=== PATIENT | female | born 1990 | race Two or more races ===

== ENCOUNTER 2023-02-13 07:58 | Outpatient (CLI) | payer OTHER ==
[2023-02-13] MEDS ORDERED: PRENATAL + DHA1 EAC1 PO (11:51)
[2023-02-13] MEDS ORDERED: ENDOMETRIN100 MG VAG (11:52)
[2023-02-13] MEDS ORDERED: PANTOPRAZOLE SO40 MG (13:38)
[2023-02-13] MEDS ORDERED: FOLIC ACID1 MG (13:38)
[2023-02-13] MEDS ORDERED: INDOMETHACIN25 MG PO (15:28)
== END 2023-02-13 09:29 | disposition home or self-care (01) ==
LOC: PRENATAL 07:58
PROVIDERS: ATTEND Obstetrics & Gynecology Maternal & Fetal Medicine
DX: O26.849 Uterine size-date discrepancy, unspecified trimester (principal); O26.879 Cervical shortening, unspecified trimester; O44.00 Complete placenta previa NOS or without hemorrhage, unspecified trimester; O34.40 Maternal care for other abnormalities of cervix, unspecified trimester; Z3A.19 19 weeks gestation of pregnancy

== ENCOUNTER 2023-02-13 09:19 | Day surgery (SDC) | payer OTHER ==
[~2023-02-13] VITALS: Ht 162.6 cm; Wt 69.9 kg
[2023-02-13] MEDS ORDERED: PRENATAL + DHA1 EAC1 PO (11:51)
[2023-02-13] MEDS ORDERED: ENDOMETRIN100 MG VAG (11:52)
[2023-02-13] MEDS ORDERED: FOLIC ACID1 MG (13:38)
[2023-02-13] MEDS ORDERED: PANTOPRAZOLE SO40 MG (13:38)
[2023-02-13] MEDS ORDERED: INDOMETHACIN25 MG PO (15:28)
== END 2023-02-13 18:15 | disposition home or self-care (01) ==
LOC: LDR 09:19 → CIR.AMB 09:19 → EDSTATUS 14:00 → CIR.AMB 18:15 → LDR 18:15
PROVIDERS: ATTEND Obstetrics & Gynecology Maternal & Fetal Medicine
DX: O26.872 Cervical shortening, second trimester (principal); Z3A.19 19 weeks gestation of pregnancy; O44.02 Complete placenta previa NOS or without hemorrhage, second trimester; Z91.013 Allergy to seafood; Z20.822 Contact with and (suspected) exposure to COVID-19

== ENCOUNTER 2023-02-27 10:28 | Outpatient (CLI) | payer OTHER ==
[~2023-02-27 10:28] MED LIST: ENDOMETRIN100 MG VAG; FOLIC ACID1 MG; INDOMETHACIN25 MG PO; PANTOPRAZOLE SO40 MG; PRENATAL + DHA1 EAC1 PO
== END 2023-02-27 12:45 | disposition home or self-care (01) ==
LOC: PRENATAL 10:28
PROVIDERS: ATTEND Obstetrics & Gynecology Maternal & Fetal Medicine
DX: O26.849 Uterine size-date discrepancy, unspecified trimester (principal); O44.00 Complete placenta previa NOS or without hemorrhage, unspecified trimester; O26.879 Cervical shortening, unspecified trimester; Z3A.21 21 weeks gestation of pregnancy

== ENCOUNTER 2023-04-21 08:10 | Outpatient (CLI) | payer OTHER | END 2023-04-21 09:37 | disposition home or self-care (01) | LOC: PRENATAL 08:10 | PROVIDERS: ATTEND Obstetrics & Gynecology Maternal & Fetal Medicine | DX: O26.849 Uterine size-date discrepancy, unspecified trimester (principal); O44.00 Complete placenta previa NOS or without hemorrhage, unspecified trimester; O26.879 Cervical shortening, unspecified trimester; O35.9XX0 Maternal care for (suspected) fetal abnormality and damage, unspecified, not applicable or unspecified; Z3A.29 29 weeks gestation of pregnancy ==

== ENCOUNTER 2023-05-29 11:20 | Outpatient (CLI) | payer OTHER | END 2023-05-29 14:25 | disposition home or self-care (01) | LOC: PRENATAL 11:20 | PROVIDERS: ATTEND Obstetrics & Gynecology Maternal & Fetal Medicine | DX: O26.849 Uterine size-date discrepancy, unspecified trimester (principal); O26.879 Cervical shortening, unspecified trimester; O36.8199 Decreased fetal movements, unspecified trimester, other fetus; Z3A.34 34 weeks gestation of pregnancy ==

== ENCOUNTER 2023-06-09 11:48 | Outpatient (CLI) | payer OTHER | END 2023-06-09 17:00 | disposition home or self-care (01) | LOC: OBS/DEL 11:48 | PROVIDERS: ATTEND Specialist | DX: O26.873 Cervical shortening, third trimester (principal); O34.33 Maternal care for cervical incompetence, third trimester; Z3A.36 36 weeks gestation of pregnancy ==

== ENCOUNTER 2023-06-30 09:43 | Inpatient (IN) | payer OTHER ==
[~2023-06-30] VITALS: Ht 162.6 cm; Wt 74.4 kg
[2023-06-30] MEDS ORDERED: IRON240 MG (11:46)
== END 2023-07-02 17:56 | disposition home or self-care (01) | DRG 807 ==
LOC: LDR 09:43 → OB/GYN 23:24
PROVIDERS: ADMIT Specialist; ATTEND Specialist
PROC: 10E0XZZ Delivery of Products of Conception, External Approach (ICD-10-PCS; principal; 2023-06-30)
PROC: 0KQM0ZZ Repair Perineum Muscle, Open Approach (ICD-10-PCS; 2023-06-30)
PROC: 4A1HXCZ Monitoring of Products of Conception, Cardiac Rate, External Approach (ICD-10-PCS; 2023-06-30)
DX: O70.1 Second degree perineal laceration during delivery (principal); Z37.0 Single live birth; Z3A.39 39 weeks gestation of pregnancy; Z20.822 Contact with and (suspected) exposure to COVID-19